=== PATIENT | male | born 1975 | race Caucasian/White ===

== ENCOUNTER 2018-02-01 16:42 | Outpatient (CLI) | payer OTHER ==
--- NOTE | 2018-02-02 10:52 | MRI Report ---
EXAM: RIGHT KNEE MRI WITHOUT CONTRAST EXAM DATE: 02/01/2018 05:33 PM. CLINICAL HISTORY: PAIN IN RT KNEE,INJURY. COMPARISON: None. TECHNIQUE: Multiplanar, multisequence T1-weighted and fluid-sensitive sequences of the knee without c ontrast. Other: None. FINDINGS: Cruciate ligaments: Anterior and posterior cruciate ligaments appear intact. Medial meniscus: Intact. No tear is identified. Lateral meniscus: Intact. No tear is identified. Collateral ligaments: Edema adjacent to the anterior fibers of the medial collateral ligament which o therwise appears intact. Fibular collateral ligament appears intact. Bones and articular surfaces: Small joint effusion. Focal cartilage fissuring at the medial trochlea. Slight cartilage thinning in the weightbearing medial compartment. Extensor mechanism: The patellar tendon and quadriceps insertion appear intact. IMPRESSION: 1. Small joint effusion. 2. Mild chondromalacia in the medial and patellofemoral compartments. 3. Possible grade 1 sprain of the medial collateral ligament. [facility] MUSCULOSKELETAL RADIOLOGY SECTION Referring Provider Line: [phone] SITE ID: [id number]
== END 2018-02-01 16:43 | disposition home or self-care (01) ==
LOC: DI 16:42
PROVIDERS: ATTEND Internal Medicine
DX: M25.561 Pain in right knee (principal); M25.461 Effusion, right knee; M94.261 Chondromalacia, right knee

== ENCOUNTER 2021-09-10 12:32 | Outpatient (CLI) | payer OTHER ==
[2021-09-10 13:57] VITALS: BP 139/87
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
== END 2021-09-10 12:33 | disposition home or self-care (01) ==
LOC: SC 12:32
PROVIDERS: ATTEND Nurse Practitioner Family
DX: R06.83 Snoring (principal); R51.9 Headache, unspecified; G47.10 Hypersomnia, unspecified; G47.8 Other sleep disorders; R41.89 Other symptoms and signs involving cognitive functions and awareness
CPT/HCPCS: 99203; 99212

== ENCOUNTER 2021-09-11 14:03 | Outpatient (CLI) | payer OTHER | END 2021-09-11 14:04 | disposition home or self-care (01) | LOC: SC 14:03 | PROVIDERS: ATTEND Nurse Practitioner Family | DX: G47.10 Hypersomnia, unspecified (principal); G47.8 Other sleep disorders; R06.83 Snoring; R51.9 Headache, unspecified | CPT/HCPCS: 95806 ==

== ENCOUNTER 2021-09-25 12:46 | Outpatient (CLI) | payer OTHER ==
[2021-09-25 13:22] VITALS: BP 143/97
--- NOTE | 2021-09-25 13:22 | SLEEP CARE CONSULTATION ---
Information from patient questionnaire entered by Leesa Mendosa MA. I have reviewed and concur with the information entered by Leesa Mendosa MA. This document represents the service I personally performed and the decisions made by Ruben gandara Caren J, ARNP. History of Present Illness Service Date and Time: 09/25/2021 1246 Initial [place] Sleepiness Scale score: 15 (2021) Current [place] Sleepiness Scale score: 14 (2021) Additional HPI information: CARLA MENSAH returns for follow up and results of the recently performed home sleep study. The patient was informed of the following findings: No significant sleep disordered breathing with an average AHI of 0.6 and a [place] oxygen saturation of 91%. I explained the pathophysiology behind obstructive sleep apnea. Patient does not have sleep apnea and was advised how weight gain could increase the risk of developing sleep apnea in the future. I strongly encouraged the patient to lose weight. Patient has moderate snoring. Snoring can be reduced by weight loss. Weight loss is best achieved with diet consult. Patient instructed to contact PCP for referral. Snoring can also be treated with an oral appliance from a dentist. Advised to check insurance coverage. In addition, an ENT evaluation can be do to see if other treatment is indicated. Patient does not drink alcohol. Patient was cautioned about risks of drowsy driving until sleepiness symptoms resolve. Sleep Study - Results Type of Sleep Study: Home sleep study Polysomnography/Home Sleep Study results: Physician Impression: The quality of the study is good. The length of the study is adequate (> 240 minutes). Please also see the tabulated and graphic data. 1. No significant sleep disordered breathing, with an AHI of 0.6/hr and [place] SaO2 of 91%. During the study, the patient had 1 apneas (1 obstructive, 0 central, 0 mixed) and 2 hypopneas. The longest episode lasted 39.0 seconds. The patient had limited supine sleep (supine AHI was 0.0 and non-supine, 0.62). Allergies and Home Medications Known drug allergies: No Drug allergies reviewed: Yes Home medication list reviewed: Yes (no changes) Review of Systems Review of systems same as previous: Yes (no changes) Physical Exam Vital signs obtained and entered by: Carlie MENDOSA MOLD CLOSER AAMA Blood Pressure: 143/97 (right, pulse 78) Heart Rate: 87 (pt states he has had a high bp last 3 days) O2 Saturation: 97 (with paper mask) Height: 5 ft 9 in Weight: 200 lb (w/o clothes) Body Mass Index: 29.5 BMI Classification: Overweight Impression and Plan Snoring but no significant sleep disordered breathing. Patient advised that often weight loss will reduce snoring as well as apnea risk. An oral appliance can also be used for snoring. This would require a dental consultation. Patient cautioned not to use other online appliances as can cause bite issues. A list of accredited dentists in [facility] who make oral appliances is available in the office. Patient is advised to check if insurance will cover. An ENT consult can also be helpful to determine if any other treatment is an option. * Attempt to lose weight * Avoid alcohol consumption near bedtime * The patient is cautioned about driving until sleepiness is completely resolved. * Return as needed for follow up. Counseling Topics: Weight loss health impact Visit Type: In Office Time Spent with Patient (minutes): 12 Provider Statement: I spent 100% of the Face to Face Visit with the patient with greater than 50% spent counseling the patient and coordination of care.
== END 2021-09-25 12:47 | disposition home or self-care (01) ==
LOC: SC 12:46
PROVIDERS: ATTEND Nurse Practitioner Family
DX: R06.83 Snoring (principal); G47.10 Hypersomnia, unspecified
CPT/HCPCS: 99212